=== PATIENT | male | born 1980 | race Two or more races ===

== ENCOUNTER 2021-02-23 21:37 | Emergency (ER) | payer OTHER ==
[~2021-02-23] VITALS: Ht 165.1 cm; Wt 74.8 kg
[2021-02-23 21:50] VITALS: BP 135/80
[2021-02-23] MEDS ORDERED: ACETAMINOPHEN ES 500 MG TABLET PO ONE (22:30)
[2021-02-23] MEDS ORDERED: ACETAMINOPHEN ES 500 MG TABLET ONE (22:59)
[2021-02-23] MEDS ORDERED: KETOROLAC TROMETHAMINE INJ 30 MG/ML VIAL ONE (23:17)
[2021-02-23] MEDS ORDERED: KETOROLAC TROMETHAMINE INJ 30 MG/ML VIAL IM ONE (23:30)
== END 2021-02-23 23:50 ==
LOC: ER 21:45
DX: S09.90XA Unspecified injury of head, initial encounter (principal); W22.8XXA Striking against or struck by other objects, initial encounter; Y93.89 Activity, other specified; Y92.89 Other specified places as the place of occurrence of the external cause; Y99.8 Other external cause status
CPT/HCPCS: 70450; 72125; 96372; 99284; J1885